=== PATIENT | male | born 2000 | race Hispanic/Latino ===

== ENCOUNTER 2022-03-18 09:08 | Emergency (ER) | payer BC, SELFPAY ==
[2022-03-18 09:21] VITALS: BP 150/77; PULSE 78; RESP 16; TEMP 36.8; O2SAT 99
--- NOTE | 2022-03-18 09:29 | ED.EPISTAXIS ---
HPI - Epistaxis General Chief complaint: Epistaxis Stated complaint: Nose bleed Time Seen by Provider: 03/18/22 09:39 Source: patient Mode of arrival: ambulatory Limitations: no limitations History of Present Illness HPI Narrative: 21-year-old male presents with concern for intermittent nosebleed. Reports for approximately 1 week he has had nosebleed that lasted for about 5 minutes on and off. He reports the bleeding seems to be coming from the front of the nose. He reports for the same amount of time he has had runny nose and stuffy nose. He denies any [id number] medications for the symptoms. complaint: epistaxis Related Data Allergies Allergy/AdvReac Type Severity Reaction Status Date / Time No Known Allergies Allergy Unverified 03/18/22 09:14 Review of Systems Review of Systems: CONSTITUTIONAL: Denies malaise, chills, sweats, or fever. EYES: Denies visual changes, redness, or discharge. ENT: Reports rhinorrhea, congestion, intermittent nosebleed. Denies sinus pain, otalgia or sore throat. CARDIOVASCULAR: Denies chest pain, palpitations, or edema. RESPIRATORY: Denies cough or dyspnea. SKIN: Denies rash or itching. NEUROLOGIC: Denies headache. All systems reviewed & are unremarkable except as noted in HPI and below PMFSH Comments At time of signature, agree with nursing past medical, surgical, social and family history. There is no relevant family history pertinent to the presenting complaint Exam Narrative: GENERAL: Well-appearing, well-nourished, and in no acute distress. HEAD: Normocephalic, atraumatic. EYES: PERRLA, sclera clear, and EOMI. No nystagmus. ENT: Nares clear. 2 small areas of excoriation without active bleeding noted in the right nare, 1 small area of excoriation without active bleeding noted in the left nare, otherwise turbinates pink, clear rhinorrhea, no active epistaxis. Mucous membranes moist. TM pearly forte with sharp light reflex bilaterally; no tragal tenderness. Oropharynx without erythema or lesions. Tonsils not enlarged and without exudate. NECK: Supple. No lymphadenopathy. CHEST: No respiratory distress. Speaks in full sentences. HEART: Regular rate and rhythm. No murmur heard. SKIN: Warm, dry, no visible rash. NEURO: Alert and oriented x3. PSYCH: Normal mood and affect Course Course Emergency Course: Patient is aware of diagnosis, understands and agrees to treatment plan. Anticipatory guidance given. Patient agrees to follow-up as directed and is aware of reasons to seek care at the emergency department. Portions of this record may have been created with voice recognition software Level of Care: Express Care Visit Vital Signs Vital signs: Vital Signs Temperature 98.3 F 03/18/22 09:21 Pulse Rate 78 03/18/22 09:21 Respiratory Rate 16 03/18/22 09:21 Blood Pressure 150/77 H 03/18/22 09:21 Pulse Oximetry 99 03/18/22 09:21 Oxygen Delivery Room Air 03/18/22 09:21 Temperature 98.3 F 03/18/22 09:21 Pulse Rate 78 03/18/22 09:21 Respiratory Rate 16 03/18/22 09:21 Blood Pressure 150/77 H 03/18/22 09:21 Pulse Oximetry 99 03/18/22 09:21 Oxygen Delivery Room Air 03/18/22 09:21 Reviewed. MDM - Epistaxis MDM Narrative Medical decision making narrative: Exam findings show no acute concerns or changes; patient is non-toxic appearing and is in no distress. Patient is appropriate for outpatient treatment and follow-up. Differential Diagnosis Differential diagnosis: Likely nasal bone fracture, anterior epistaxis, posterior epistaxis and other (Sinusitis) Critical Care Time Critical Care Time Critical Care Time: No Discharge Plan Discharge Clinical Impression: Anterior epistaxis Patient Disposition: Home, Self-Care Condition: Stable Instructions: Nosebleed (ED) Additional Instructions: Use saline nose spray throughout the day to increase the moisture in your nose. You can also use Vaseline or Aquaphor on the inside of y
== END 2022-03-18 09:52 | disposition home or self-care (01) ==
PROVIDERS: Emergency Provider Nurse Practitioner; PCP Family Medicine
DX: R04.0 Epistaxis (principal)
CPT/HCPCS: 99213; G0463